=== PATIENT | male | born 1985 | race Caucasian/White ===

== ENCOUNTER 2018-08-18 18:07 | Emergency (ER) | payer MEDICAID, SELFPAY ==
[2018-08-18 18:09] VITALS: BP 127/78; PULSE 100; RESP 18; TEMP 36.6; O2SAT 98; BMI 23.3
[2018-08-18] MEDS: 0.9% Normal Saline 1,000 ML 1000 ML IV (18:56)
[2018-08-18 19:13] LABS: Anion Gap 6 (5-15); BUN 9 mg/dL (7-18); Calcium,Total 8.6 mg/dL (8.5-10.1); Chloride 104 mmol/L (98-107); EST Glomerular Filtration Rate 102 mL/min (>60); Est Glom Filt Rate - Afr Amer 124 mL/min (>60); Estimated Creatinine Clearance 108.13 ml/min; Glucose 90 mg/dL (74-106); Potassium 3.2 mmol/L (3.5-5.1); Sodium Level 140 mmol/L (136-145)
--- NOTE | 2018-08-18 19:42 | ED.VISSUMM ---
- ER Visit Summary Date of Service: 08/18/18 Chief Complaint: Anxiety History of Present Illness: The patient is a 33 M who reports that he ran out of his his Suboxone approximately a week ago and has gone on a meth binge because of this. States that he began feeling anxious yesterday. States his last meth use was 3 days ago. He uses this intravenously. Patient reports that he feels dehydrated and has not been drinking much fluid. He has had a poor appetite. Reports that he has a little bit of a sore throat. States he has a headache that is 6 out of 10 in severity. He does have a history of similar headaches. Physical Examination: Vitals: Stable. Afebrile. General: Well-nourished and well-developed. Head: Normocephalic atraumatic. Neck: Supple, no lymphadenopathy. No JVD. Nontender. Cardiovascular: Regular rate and rhythm. No murmurs. Respiratory: No respiratory distress. Clear to auscultation bilaterally. Abdominal: Soft, nontender, nondistended, normal bowel sounds. No guarding, rebound, or peritoneal signs. Back: Nontender. Extremities: Nontender, no edema. Injection site in the left antecubital fossa shows no evidence of infection. There is no erythema, induration, or fluctuance. Skin: Normal color, no rash. Neurologic: Alert and oriented ?3. Cranial nerves II through XII are intact. Normal strength and sensation. Psych: Normal affect. Test Results: BMP is more for potassium 3.2. Emergency Department Course and Treatment: Patient was given a liter of normal saline. I wrote for Vistaril IM. He refused this. States that it does not work and he wants Ativan. An [facility] report was obtained which shows that the patient actually had a prescription for Suboxone filled 10 days ago. This was a 14-day course of Suboxone. I approached the patient and his significant other with this evidence. Discussed them the fact that he has not been forthcoming with me and that I will not prescribe him any controlled substances or give him any controlled substances while here. Treatment Plan: Patient will be discharged with instructions to follow-up with 180 as soon as possible. Disposition: To home in improved and stable condition. Impression: 1. Polysubstance abuse. 2. Anxiety. This note was generated with [employer] software. It may contain incorrect words, spelling, and punctuation that were not noted in review of the chart prior to signing ED Disposition - Plan for ED Patient: Disposition: Home or Assisted Living Chief Complaint: Anxiety Instructions: ED Drug Abuse General Referrals: Doctor,Your [STAFF PHYSICIAN] - As soon as possible
[2018-08-18 20:03] VITALS: BP 119/71; PULSE 89; RESP 16; O2SAT 99
== END 2018-08-18 20:04 | disposition home or self-care (01) ==
PROVIDERS: Emergency Provider Emergency Medicine
DX: F19.10 Other psychoactive substance abuse, uncomplicated (principal); F41.9 Anxiety disorder, unspecified; J02.9 Acute pharyngitis, unspecified; R51 Headache; F32.9 Major depressive disorder, single episode, unspecified; Z79.899 Other long term (current) drug therapy; Z72.0 Tobacco use
CPT/HCPCS: 80048; 96360; 99283; J7030